=== PATIENT | female | born 1945 | race Caucasian/White ===

== ENCOUNTER 2021-01-15 05:14 | Inpatient (IN) ==
--- NOTE | 2020-12-29 15:06 | PAT Medication Instructions ---
Medication Instructions Date of Service December 29, 2020 Home Medications aspirin [Aspir-81] 81 mg PO QAM cholecalciferol (vitamin D3) [Vitamin D3] 25 mcg PO QAM fluticasone propionate [Flonase] 2 spray INTRANASAL HS ibuprofen [Motrin] 800 mg PO BID omeprazole 20 mg PO QAM ASK your surgeon for instructions ibuprofen [Motrin] 800 mg PO BID ASK your prescriber and surgeon aspirin [Aspir-81] 81 mg PO QAM DO NOT take the morning of surgery cholecalciferol (vitamin D3) [Vitamin D3] 25 mcg PO QAM Take morning of surgery With a small sip of water, OTHERWISE NOTHING TO EAT OR DRINK AFTER MIDNIGHT: omeprazole 20 mg PO QAM Take evening before surgery fluticasone propionate [Flonase] 2 spray INTRANASAL HS Other Notes If you have any questions please call us at [phone] or [phone] or [phone] or [phone]
--- NOTE | 2021-01-02 11:19 | Anesthesiology Consultation ---
Date of Service January 02, 2021 Assessment & Plan (1) Encounter for pre-operative examination: COVID screening: Per assessment on 01/02: Travel screen negative, no known COVID- 19 positive contacts or current COVID-19 related symptoms. Patient fully vaccinated. Surgeon arranging preop COVID testing (scheduled 01/08; MARRY Garcia). Awaiting results. Chart Review Chart Review: Acceptable Risk for Surgery and Patient seen in Pre Admission Testing Teaching & Discussion Pre-Anesthesia Teaching/Discussion Notes: Instructed NPO after midnight before surgery,except medications with 15 cc of water. Medication instructions provided according to the PAT guidelines. History Surgery Operation Date: 01/15/21 07:00 Proposed Procedures p Right Reverse Total Shoulder Arthroplasty - Adam Jaramillo M.D. Height/Weight Height: 5 ft 3 in Weight: 71.9 kg Allergies Allergy/AdvReac Type Severity Reaction Status Date / Time No Known Allergies Allergy Verified 12/22/20 09:50 Medications Home Medications Medication Instructions Recorded Confirmed Last Taken aspirin [Aspir-81] 81 mg PO QAM 12/22/20 12/22/20 Unknown cholecalciferol (vitamin D3) 25 mcg PO QAM 12/22/20 12/22/20 Unknown [Vitamin D3] fluticasone propionate [Flonase] 2 spray INTRANASAL HS 12/22/20 12/22/20 Unknown ibuprofen [Motrin] 800 mg PO BID 12/22/20 12/22/20 Unknown omeprazole 20 mg PO QAM 12/22/20 12/22/20 Unknown Past Medical History Medical History GERD (gastroesophageal reflux disease) Osteoarthritis Exercise / Class Metabolic Activity II 4-5 Yardwork/Stairs/Walk up hill Past Family History Family History Brother Diabetes Past Surgical History Surgical History H/O bilateral cataract extraction History of cardiac cath 5+ years ago > no stents (per [facility] records) History of colonoscopy History of esophagogastroduodenoscopy (EGD) History of hysterectomy History of tooth extraction 1 implant Past Anesthesia History No Hx of Anesthesia Complications and No Family Hx of Anesthesia Complications History of PONV No Hx of PONV and No Hx of Motion Sickness Social History Smoking Status: Never smoker Do You Dip or Chew Tobacco: No Hx Alcohol Use: Yes Alcohol type: wine alcohol intake frequency: holidays/special occasions only Hx Substance Use: No substance use type: does not use Review of Systems Patient denies chest pain, shortness of breath, dyspnea on exertion, fever, chills, cough, wheezing, palpitations. Physical Exam Vital Signs VITALS BP 150/83 P 76 TEMP 98.1 SP02 97%RA RESP 16 PHYSICAL Full neck and c-spine range of motion. Full TMJ range of motion. TMD 3 finger breaths Mallampati Score 1 Dentition: intact, upper left canine tooth implant Lungs: clear throughout to auscultation Cardiac: regular rate and rhythm, no murmurs noted Spine: normal Carotid arteries: negative bruit Extremities: no edema Testing Laboratory Results 01/02/21 12:25 01/02/21 12:25 PT 9.7 Seconds (9.0-12.0) 01/02/21 12:25 INR 1.0 (0.9-1.1) 01/02/21 12:25 APTT 30.8 Seconds (21.0-31.0) 01/02/21 12:25 Hemoglobin A1c 6.2 % (4.5-5.6) H 01/02/21 12:25 Urine Color Yellow 01/02/21 12:25 Urine Appearance Clear (Clear) 01/02/21 12:25 Urine pH 7.0 (4.5-7.5) 01/02/21 12:25 Ur Specific [place] 1.006 (1.000-1.030) 01/02/21 12:25 Urine Protein Negative (Negative) 01/02/21 12:25 Urine Glucose (UA) Negative (Negative) 01/02/21 12:25 Urine Ketones Negative (Negative) 01/02/21 12:25 Urine Nitrite Negative (Negative) 01/02/21 12:25 Ur Leukocyte Esterase Negative (Negative) 01/02/21 12:25 Blood Type O Positive 01/02/21 12:25 Antibody Screen NEGATIVE 01/02/21 12:25 Electrocardiogram Date: 01/02/21 Findings: + NSR @ (74) Chest X-Ray Date: 01/02/21 Findings: + NAD Stress Test Date: 05/11/19 Type: DSE Dobutamine stress echo is normal with out inducible ischemia. Dobutamine stress EKG is equivocal. 85% MPHR. No significant arrhythmias. LVEF 60 to 64%. Mild RVD. Mild MR. PASP estimated at 23 mmHg.
--- NOTE | 2021-01-02 13:01 | XRay Report ---
XR chest Pre-admission PA/Lat HISTORY: Preop. COMPARISON: None. FINDINGS: The lungs are clear. Cardiac silhouette is normal in size. No pleural effusions. No pneumot horax. IMPRESSION: No acute process. ACT 112: Negative or not required by law. Electronically signed by: Lennox Alcazar M.D. 01/02/2021 1:00 PM
[2021-01-02 14:37] LABS: Basophils # (auto) 0.03 K/uL (0-0.2); Basophils % (auto) 0.3 %; Eosinophils # (auto) 0.31 K/uL (0-0.5); Eosinophils % (auto) 2.9 %; Hematocrit (blood only) 36.8 % (37-47); Hemoglobin 12.1 g/dL (12.0-16.0); Immature Granulocytes # (auto) 0.03 K/uL (0.00-0.02); Immature Granulocytes % (auto) 0.3 %; Lymphocytes # (auto) 2.34 K/uL (1.2-3.4); Mean Corpuscular Hemoglobin 28.2 pg (25-34); Mean Corpuscular Hgb Conc 32.9 g/dL (32-36); Mean Corpuscular Volume 85.8 fL (80-100); Mean Platelet Volume 10.2 fL (7.4-10.4); Monocytes # (auto) 1.03 K/uL (0.11-0.59); Monocytes % (auto) 9.7 %; Neutrophils # (auto) 6.91 K/uL (1.4-6.5); Neutrophils % (auto) 64.8 %; Platelet Count 494 K/uL (130-400); RDW Coefficient of Variation 13.3 % (11.5-14.5); RDW Standard Deviation 41.6 fL (36.4-46.3); Red Blood Count 4.29 M/uL (4.2-5.4); White Blood Count 10.65 K/uL (4.8-10.8)
[2021-01-02 14:43] LABS: Appearance Urine Clear (Clear); Bilirubin Urine Negative (Negative); Blood Urine Negative (Negative); Color Urine Yellow; Glucose Urine UA Negative (Negative); Ketones Urine Negative (Negative); Leukocyte Esterase Urine Negative (Negative); Nitrite Urine Negative (Negative); Protein Urine Negative (Negative); Specific Gravity Urine 1.006 (1.000-1.030); Urobilinogen Urine Negative (Negative)
[2021-01-02 14:47] LABS: Albumin Level 3.5 gm/dl (3.4-5.0); BUN Creatinine Ratio 14.1 (10-20); Calcium 9.6 mg/dl (8.5-10.1); Creatinine Clr Calc Pharmacy 57.6 ml/min; Est GFR (African American) 84.3; Est GFR (Non-African American) 72.7; Potassium 4.7 mmol/L (3.5-5.1)
[2021-01-02 14:54] LABS: Estimated Average Glucose 131 mg/dl; Hemoglobin A1C 6.2 % (4.5-5.6)
[2021-01-02 14:55] LABS: Partial Thromboplastin Ratio 1.2; Partial Thromboplastin Time 30.8 Seconds (21.0-31.0); Prothrombin Time 9.7 Seconds (9.0-12.0)
--- NOTE | 2021-01-02 21:13 | Electrocardiogram Report ---
Test Reason : Blood Pressure : / mmHG Vent. Rate : 074 BPM Atrial Rate : 074 BPM P-R Int : 140 ms QRS Dur : 090 ms QT Int : 380 ms P-R-T Axes : 045 069 057 degrees QTc Int : 421 ms Normal sinus rhythm Normal ECG No previous ECGs available Confirmed by Lior Garrett ([id number]) on 01/02/2021 9:13:25 PM Referred By: Adam Jaramillo Confirmed By:Lior Garrett
--- NOTE | 2021-01-14 10:32 | History & Physical Report ---
Date of Service January 14, 2021 Assessment & Plan (1) Right rotator cuff tear arthropathy: She has an obvious chronic, massive, retracted, full-thickness rotator cuff tear. With the fatty atrophy, this is obviously an irrepairable tear. Therefore only viable surgical treatment option at this point would be a reverse total shoulder arthroplasty. We discussed initial conservative treatment with a steroid injection versus definitive surgical intervention with the shoulder replacement. The injection may help with her pain temporarily, but will not likely significantly improve her shoulder function. The lack of abduction is severely problematic to her and very debilitating. She would much prefer to improve her function so she can get back to her active lifestyle. She therefore would prefer to proceed with shoulder replacement surgery, and I think this is very reasonable. Risks, benefits, and alternatives of surgery were explained in detail. The surgical procedure, as well as postoperative recovery and rehabilitation, was also explained in detail. Risks include bleeding; infection; damage to surrounding structures such as nerves, blood vessels, and tendons that run in the area; persistent pain or stiffness; hardware failure; dislocation; brachial plexus palsy; blood clots; or need for further surgery. The patient understands all of this and wishes to proceed with surgery. Preoperative workup was completed today, and informed consent was obtained. Present on Admission?: Yes History of Present Illness Chief Complaint: Right shoulder pain and weakness Primary Care Provider: NO PCP Ms. New returns today for her right shoulder. Again, she is a 75-year old [id number] female with chronic right shoulder pain and weakness. She does have a history of a rotator cuff repair on this shoulder back in [address] Neil, although unfortunately we do not have any record of this in our EMR. She did well after that surgery, and had a good recovery. She then started having recurrent pain and weakness in the right shoulder about a year ago without any obvious recurrent injury. She went through physical therapy for about 6 weeks without any significant improvement. She has significant persistent pain in that shoulder that is making activities of daily living diff icult. It is waking her up at night. She primarily has reproduction of this pain with reaching behind, forward, or overhead. Allergies Allergy/AdvReac Type Severity Reaction Status Date / Time No Known Allergies Allergy Verified 12/22/20 09:50 Home Medications Medication Instructions Recorded Confirmed Type aspirin [Aspir-81] 81 mg PO QAM 12/22/20 12/22/20 History cholecalciferol (vitamin D3) 25 mcg PO QAM 12/22/20 12/22/20 History [Vitamin D3] fluticasone propionate [Flonase] 2 spray INTRANASAL HS 12/22/20 12/22/20 History ibuprofen [Motrin] 800 mg PO BID 12/22/20 12/22/20 History omeprazole 20 mg PO QAM 12/22/20 12/22/20 History Past Med/Surg History Medical History GERD (gastroesophageal reflux disease) Osteoarthritis Surgical History H/O bilateral cataract extraction History of cardiac cath 5+ years ago > no stents (per [facility] records) History of colonoscopy History of esophagogastroduodenoscopy (EGD) History of hysterectomy History of tooth extraction 1 implant Family History Brother Diabetes Social History Smoking Status: Never smoker Second Hand Exposure: No; Do You Dip or Chew Tobacco: No; Tobacco Cessation Education Requested by Patient: No Hx Alcohol Use: Yes Alcohol type: wine Hx Substance Use: No Preferred Language: Faroese Communication Ability: Effective Interceptor Operator Required: No Beliefs That Will Affect Care: None Current Living Situation: Spouse Other Information That Helps Us Care for You: No Feels Safe at Home: Yes Safety Concerns: Feels Safe At This Time Assistive Devices: Glasses Physical Exam Physical Exam: Examination of the right shoulder reveals rather severe limitation and weakness of the supraspinatous and infraspinatous. She can only actively abduct up to about 85 degrees. Subscapularis strength is well maintained. Positive Beacon's test. Positive impingement testing. She has what appears to be a mini open rotator cuff repair incision along the lateral deltoid. No biceps tenodesis incision. Results & Data ([facility]) Diagnostic Findings MRI of the right shoulder obtained was reviewed. It shows a massive retracted full-thickness rotator cuff tear involving the entire supraspinatus and the superior half of the subscapularis. The tendon was retracted to the level of the glenoid rim. She has severe fatty atrophy of the rotator cuff muscle bellies, with about 70% atrophy of the supraspinatus, and about 60% atrophy of the subscapularis.
[2021-01-15] MEDS ORDERED: dexAMETHasone 4 MG TAB PO SCH (06:00)
[2021-01-15] MEDS ORDERED: TRANEXAMIC ACID 1,000 MG **IV Pre-op IV SCH (06:00)
[2021-01-15] MEDS ORDERED: Scopolamine 1 MG TDSY TD SCH (06:00)
[2021-01-15] MEDS ORDERED: GABAPENTIN 300 MG CAP PO SCH (06:00)
[2021-01-15] MEDS ORDERED: LR 15ML/HR IV SCH (06:00)
[2021-01-15] MEDS ORDERED: ACETAMINOPHEN 500 MG TAB PO SCH (06:00)
[2021-01-15] MEDS ORDERED: METOCLOPRAMIDE HCL 10 MG TABLET PO SCH (06:00)
[2021-01-15] MEDS ORDERED: CeleBREX 200 MG CAP PO SCH (06:00)
[2021-01-15] MEDS ORDERED: ceFAZolin 1000MG 1,000 MG/7.5 ML SYR IV SCH (06:00)
[2021-01-15] MEDS ORDERED: FAMOTIDINE 20 MG TAB PO SCH (06:00)
[2021-01-15] MEDS ORDERED: BUPIVACAINE 0.5 % 5 MG/1 ML PF 10ML VIAL ONE (06:25)
[2021-01-15] MEDS ORDERED: fentaNYL citrate 100 MCG/2 ML VIAL ONE (06:36)
[2021-01-15] MEDS ORDERED: MIDAZOLAM HCL 1 MG/ML 2ML VIAL ONE ×2 (06:36)
[2021-01-15] MEDS ORDERED: ATROPINE SULFATE 0.1 MG/ML 10ML SYR IV PRN (06:37)
[2021-01-15] MEDS ORDERED: ONDANSETRON INJ 2 MG/ML 2 ML VIAL IV PRN ×2 (06:37→10:32)
[2021-01-15] MEDS ORDERED: ePHEDrine sulfate 50 MG/ML AMP IV PRN (06:37)
[2021-01-15] MEDS ORDERED: fentaNYL citrate 100 MCG/2 ML VIAL IV PRN (06:37)
--- NOTE | 2021-01-15 07:00 | History & Physical Bridge Note ---
Date of Service January 15, 2021 History & Physical Bridge Note I have examined the patient, reviewed the History & Physical and in the interval since the performance of the History & Physical I have noted the following changes of clinical significance: no changes noted
[2021-01-15] MEDS ORDERED: ePHEDrine sulfate 50 MG/ML SYR ONE (07:43)
[2021-01-15] MEDS ORDERED: LIDOCAINE HCL 2% 2 ML VIAL/AMP(20MG/ML) INFIL ONE (07:43)
[2021-01-15] MEDS ORDERED: ONDANSETRON INJ 2 MG/ML 2 ML VIAL ONE (07:43)
[2021-01-15] MEDS ORDERED: PROPOFOL IV EMULSION 10 MG/ML 20 ML VIAL IV ONE (07:43)
--- NOTE | 2021-01-15 09:10 | Post Operative Brief Note ---
Immediate Post Op Note v1 Date of Surgery January 15, 2021 Pre & Post Diagnosis Operation Date: 01/15/21 07:00 Pre-Op Diagnosis: Right Shoulder Rotator Cuff Tear Arthropathy Post-Op Diagnosis: Right Shoulder Rotator Cuff Tear Arthropathy I identified the patient and participated in the time-out.: Yes Procedure Operation Date: 01/15/21 07:00 Actual Procedures p Right Reverse Total Shoulder Arthroplasty(Right) - Adam Jaramillo M.D. Surgeon Adam Jaramillo Curriculum Assistant Hussein Paula PA-C Estimated Blood Loss 75 Findings Consistent with Post-Op Diagnosis
--- NOTE | 2021-01-15 09:13 | Operative Report ---
Post Operative Report Pre & Post Diagnosis Operation Date: 01/15/21 07:00 Pre-Op Diagnosis: Right Shoulder Rotator Cuff Tear Arthropathy Post-Op Diagnosis: Right Shoulder Rotator Cuff Tear Arthropathy I identified the patient and participated in the time-out.: Yes Procedure Operation Date: 01/15/21 07:00 Actual Procedures Right Reverse Total Shoulder Arthroplasty (22031) Open biceps tenodesis (98907) - Adam Jaramillo M.D. Surgeon Adam Jaramillo Circuit Court Judge Hussein Paula PA-C Estimated Blood Loss 75 Findings Consistent with Post-Op Diagnosis Specimens None Drains None Anesthesia Type General Regional Complications none Disposition Disposition: Recovery Room Indications Ms. New is a 75-year-old female with recurrent pain and weakness in her right shoulder after previous rotator cuff repair back in 2005. History, clinical exam, and imaging were consistent with the above diagnosis. Risks, benefits, and alternatives of surgery were explained in detail. The patient understood all this and wished to proceed. Description of Procedure Components Implanted: Tornier Reverse Total Shoulder implants Perform glenoid baseplate: 25mm, 15 degree full wedge with 6.5mm central screw and 5.0mm peripheral screws Glenosphere: 36mm, standard offset Ascend Flex humeral stem: 3B Standard length (74mm) Humeral tray: 1.5mm offset, +0mm thickness Polyethylene insert: 36mm, +6mm thickness Patient was identified in the preoperative holding area. Operative extremity was marked. Regional blockade was given by the Anesthesia Staff. Patient was then brought back to the operating room, and general anesthesia was induced without complication. Appropriate weight-based dose of Ancef was infused intravenously for antibiotic prophylaxis. The patient was then placed in the beachchair position. Right arm was then prepped and draped in a standard sterile fashion using Chlorhexidine prep. A standard deltopectoral incision was made through the skin and subcutaneous tissue. The cephalic vein was identified and retracted medially. Small branches to the deltoid were coagulated as necessary. The clavipectoral fascia was then incised and the subdeltoid space was opened. The rotator cuff was found to be deficient, and I therefore decided to perform a reverse total shoulder arthroplasty as planned preoperatively. The biceps tendon was identified within the bicipital groove and tenodesed at the superior border of the pectoralis tendon with #2 FiberWire suture. The biceps tendon was then divided proximal to the tenodesis site and the rotator interval was opened. The proximal portion of the biceps tendon was excised. The remaining subscapularis tendon was elevated subperiosteally off of the lesser tuberosity. The glenohumeral joint was then dislocated, and large osteophytes were debrided with a ronguer. The humeral head cut was then made in the appropriate inclination and version using the cutting guide. The intramedullary canal of the humerus was then opened with a canal finder. The humeral canal was then sequentially broached to the appropriate size. A protective cap was then placed on top of the humeral trial. I then turned my attention to the glenoid. The proximal stump of the biceps tendon was excised, along with the labrum circumferentially around the glenoid. The Blueprint drill guide was then positioned on the glenoid, and the guidepin was then inserted. The 15 degree angled reamer was then inserted over the guidepin and an reamed to an appropriate depth. The central screw hole was drilled, and appropriate length 6.5mm central screw was selected. The baseplate was then implanted into place according to our preoperative Blueprint plan by tightening down the central screw. A peripheral 5mm nonlocking screw was placed superiorly first for additional compression of the baseplate, and then additional locking 5 mm peripheral screws were placed to complete fixation of the baseplate. Glenosphere was then impacted and secured. A trial humeral tray and insert were placed on the trial humeral stem, and a trial reduction was carried out. Once I achieved acceptable joint stability and range of motion with the trial implants, the final humeral implants were assembled on the back table and then impacted into position. I then took the shoulder through full range of motion to ensure good stability and acceptable motion. Wound was then copiously irrigated with sterile saline. Deep fascia was closed with 0 V-lock suture. Subcutaneous tissue was closed with 2-0 V-lock, and skin was closed with 3-0 V-lock. Skin was then sealed with Dermabond. Sterile dressings were then applied with a waterproof silver-impregnated dressing, and the arm was placed into a sling. The patient was awakened from anesthesia and taken to the Post Anesthesia Care Unit in stable condition. There were no immediate complications from the procedure. I was present and scrubbed for the entire procedure, with the exception of final skin closure and dressing application. Due to the complex nature of the procedure, the entire surgery was performed with the operational assistance of Hussein Paula PA-C. The floor covering printer assistant, under direct supervision, was involved in the performance of all aspects of the surgical procedure including patient positioning, tissue retraction, hemostasis, wound closure, and dressing application. I attest to the content of the Intraoperative Record and any orders documented therein. Any exceptions are noted below.
--- NOTE | 2021-01-15 09:55 | XRay Report ---
XR shoulder RT min 2V routine HISTORY: 75 years-old Female Post shoulder surgery right shoulder total joint arthroplasty COMPARISON: Chest radiographs 01/02/2021 TECHNIQUE: 2 views of the right shoulder FINDINGS: Reverse right shoulder total joint arthroplasty. Satisfactory alignment without fracture or unexpecte d opaque foreign body. Expected postsurgical soft tissue swelling and deep tissue air. The imaged juana g renteria appear clear. IMPRESSION: Reverse right shoulder total joint arthroplasty with expected postoperative changes. ACT 112: Negative or not required by law. The above report was generated using voice recognition software. It may contain grammatical, syntax o r spelling errors. Electronically signed by: Moreno Reed M.D. 01/15/2021 9:54 AM
[2021-01-15] MEDS ORDERED: METOCLOPRAMIDE HCL INJ 5 MG/ML 2 ML VIAL IV PRN (10:32)
[2021-01-15] MEDS ORDERED: MAGNESIUM HYDROXIDE SUSP 30 ML UDC PO PRN (10:32)
[2021-01-15] MEDS ORDERED: bisacodyL 10 MG SUPP PR PRN (10:32)
[2021-01-15] MEDS ORDERED: NALOXONE HCL 0.4 MG/1 ML VIAL/CARP IV PRN (10:32)
[2021-01-15] MEDS: SODIUM CHLORIDE 0.9% 1000ML 1,000 ML IV SCH ×2 (11:13→20:42)
--- NOTE | 2021-01-15 11:27 | Anesthesiology Progress Note ---
Date of Service January 15, 2021 Anesthesia Post Procedure Vital Signs Vital Signs: Temp Pulse Pulse Resp BP Pulse Ox 01/15/21 11:14 97.7 F 87 15 118/67 97 01/15/21 10:50 97.9 F 76 17 128/69 97 01/15/21 10:15 97.7 F 74 16 130/69 98 01/15/21 10:05 81 16 138/62 99 01/15/21 09:55 97.7 F 77 16 136/61 98 01/15/21 09:45 75 16 141/69 H 98 01/15/21 09:35 76 16 130/61 100 01/15/21 09:28 97.9 F 80 18 130/61 100 01/15/21 05:39 98.2 F 79 18 164/76 H 97 Pain Intensity Right Shoulder: Pain Intensity: 3 Transfer of Care Handoff Completed per policy Notes Mental Status: alert / awake / arousable and participated in evaluation Patient Amnestic to Procedure: Yes Nausea / Vomiting: adequately controlled Pain: adequately controlled Airway Patency, RR, SpO2: stable & adequate BP & HR: stable & adequate Hydration State: stable & adequate Anesthetic Complications: no major complications apparent and Pt Satisfied with anesthetic care
[2021-01-15] MEDS: ACETAMINOPHEN 500 MG TAB PO SCH ×3 (14:08→23:13)
--- NOTE | 2021-01-15 14:14 | Orthopedic Progress Note ---
Date of Service January 15, 2021 Assessment & Plan (1) Right rotator cuff tear arthropathy: Postoperative day #0 status post right reverse total shoulder arthroplasty doing very well. -Antibiotics some 24 hours -DVT prophylaxis: Aspirin 3 and 25 mg daily -She can start immediate active range of motion of the shoulder once her block wears off, but no resisted elbow flexion or resisted forearm supination. -Plan for discharge home tomorrow. Admission and Anticipated Discharge Date Admission Date: January 15, 2021 Subjective Patient resting comfortably. Denies any pain in her shoulder. She is just starting to be able to wiggle her fingers, but really no substantial feeling yet. She is eating lunch. No nausea or vomiting. Physical Exam Physical Exam: Dressings clean, dry, and intact. Results & Data ([facility]) Vital Signs (Past 12 Hours) Vital Signs Temp Pulse Pulse Resp BP Pulse Ox 01/15/21 13:26 36.8 C 86 16 147/73 H 97 01/15/21 12:28 36.2 C L 65 18 115/65 96 01/15/21 11:14 36.5 C 87 15 118/67 97 01/15/21 10:50 36.6 C 76 17 128/69 97 01/15/21 10:15 36.5 C 74 16 130/69 98 01/15/21 10:05 81 16 138/62 99 01/15/21 09:55 36.5 C 77 16 136/61 98 01/15/21 09:45 75 16 141/69 H 98 01/15/21 09:35 76 16 130/61 100 01/15/21 09:28 36.6 C 80 18 130/61 100 01/15/21 05:39 36.8 C 79 18 164/76 H 97 Diagnostic Findings Postoperative x-rays look good. No dislocation.
[2021-01-15] MEDS: ceFAZolin 1000MG 1,000 MG/7.5 ML SYR IV SCH ×2 (15:24→23:15)
[2021-01-15] MEDS: IBUPROFEN 600 MG TAB PO SCH ×2 (15:24→20:58)
[2021-01-15] MEDS ORDERED: Scopolamine CHECK PATCH PLACEMENT SCH (16:00)
[2021-01-15] MEDS: DOCUSATE SODIUM 100 MG CAP PO SCH (20:44)
[2021-01-15] MEDS ORDERED: FLUTICASONE PROPIONATE NA SPR 16 GM BTL SCH (21:00)
[2021-01-15] MEDS ORDERED: SENNA 8.6 MG TAB PO SCH (21:00)
[2021-01-15] MEDS: oxyCODONE HCL IR 5 MG TAB (IMMEDIATE RELEASE) PO PRN (23:14)
[2021-01-15] MEDS ORDERED: COUGH DROP (SUGAR FREE) LOZ 24 LOZ/1 BOX BUCCAL PRN (23:40)
[2021-01-16] MEDS: IBUPROFEN 600 MG TAB PO SCH ×2 (03:09→08:54)
[2021-01-16 05:51] LABS: Basophils # (auto) 0.01 K/uL (0-0.2); Basophils % (auto) 0.1 %; Eosinophils # (auto) 0.04 K/uL (0-0.5); Eosinophils % (auto) 0.3 %; Hematocrit (blood only) 30.4 % (37-47); Hemoglobin 10.2 g/dL (12.0-16.0); Immature Granulocytes # (auto) 0.03 K/uL (0.00-0.02); Immature Granulocytes % (auto) 0.2 %; Lymphocytes # (auto) 3.25 K/uL (1.2-3.4); Lymphocytes % (auto) 21.3 %; Mean Corpuscular Hemoglobin 28.9 pg (25-34); Mean Corpuscular Hgb Conc 33.6 g/dL (32-36); Mean Corpuscular Volume 86.1 fL (80-100); Mean Platelet Volume 9.5 fL (7.4-10.4); Monocytes # (auto) 1.52 K/uL (0.11-0.59); Neutrophils % (auto) 68.1 %; Platelet Count 428 K/uL (130-400); RDW Coefficient of Variation 13.8 % (11.5-14.5); RDW Standard Deviation 43.2 fL (36.4-46.3); Red Blood Count 3.53 M/uL (4.2-5.4); White Blood Count 15.25 K/uL (4.8-10.8)
[2021-01-16] MEDS: ACETAMINOPHEN 500 MG TAB PO SCH (06:00)
[2021-01-16] MEDS: oxyCODONE HCL IR 5 MG TAB (IMMEDIATE RELEASE) PO PRN (06:13)
[2021-01-16 06:24] LABS: BUN Creatinine Ratio 19.4 (10-20); Calcium 8.1 mg/dl (8.5-10.1); Creatinine Clr Calc Pharmacy 54.2 ml/min; Est GFR (African American) 79.4; Est GFR (Non-African American) 68.5; Potassium 3.9 mmol/L (3.5-5.1)
[2021-01-16] MEDS: DOCUSATE SODIUM 100 MG CAP PO SCH (08:54)
[2021-01-16] MEDS ORDERED: CHOLECALCIFEROL 1,000 UNITS 25 MCG TAB PO SCH ×2 (09:00)
[2021-01-16] MEDS ORDERED: ASPIRIN 325 MG ECTAB PO SCH (09:00)
[2021-01-16] MEDS ORDERED: PANTOprazole 40 MG TAB PO SCH (09:00)
[2021-01-16] MEDS ORDERED: MULTIVITAMIN TAB PO SCH (09:00)
--- NOTE | 2021-01-16 10:09 | Orthopedic Progress Note ---
Date of Service January 16, 2021 Assessment & Plan (1) Right rotator cuff tear arthropathy: Postoperative day #1 status post right reverse total shoulder arthroplasty. Remaining stable and feeling well. -Antibiotics some 24 hours, then discontinue. -DVT prophylaxis: Aspirin 3 and 25 mg daily -She can start immediate active range of motion of the shoulder once her block wears off, but no resisted elbow flexion or resisted forearm supination. -Plan for discharge home today. Admission and Anticipated Discharge Date Admission Date: January 15, 2021 Subjective Postop day 1 Patient just under went OT and is about to do her PT protocol. She is feeling well this morning. Pain is controlled. She can tell that her block is slowly starting to wear off. She denies shortness of breath, chest pain, lightheadedness. She is hoping to go home today. Physical Exam Physical Exam: Silverlon dressing is clean, dry, and intact. Sling is in place. She has good range of motion of her wrist, hand and fingers. There is some slight weakness noted secondary to her nerve block that is still starting to wear off. Cap refills less than 2 seconds. Some residual numbness in the fingers at this time. Results & Data ([facility]) Vital Signs (Past 12 Hours) Vital Signs Temp Pulse Resp BP Pulse Ox 01/16/21 07:30 36.9 C 72 16 116/68 94 01/16/21 03:23 36.5 C 95 H 14 118/70 95 01/15/21 22:41 36.6 C 78 18 122/71 95 Laboratory Results Laboratory Results WBC 15.25 K/uL (4.8-10.8) H 01/16/21 05:32 RBC 3.53 M/uL (4.2-5.4) L 01/16/21 05:32 Hgb 10.2 g/dL (12.0-16.0) L 01/16/21 05:32 Hct 30.4 % (37-47) L 01/16/21 05:32 MCV 86.1 fL (80-100) 01/16/21 05:32 MCH 28.9 pg (25-34) 01/16/21 05:32 MCHC 33.6 g/dL (32-36) 01/16/21 05:32 RDW Std Deviation 43.2 fL (36.4-46.3) 01/16/21 05:32 RDW Coeff of Brady 13.8 % (11.5-14.5) 01/16/21 05:32 Plt Count 428 K/uL (130-400) H 01/16/21 05:32 MPV 9.5 fL (7.4-10.4) 01/16/21 05:32 Immature Gran % (Auto) 0.2 % 01/16/21 05:32 Neut % (Auto) 68.1 % 01/16/21 05:32 Lymph % (Auto) 21.3 % 01/16/21 05:32 [place] % (Auto) 10.0 % 01/16/21 05:32 Eos % (Auto) 0.3 % 01/16/21 05:32 Baso % (Auto) 0.1 % 01/16/21 05:32 Neut # (Auto) 10.40 K/uL (1.4-6.5) H 01/16/21 05:32 Lymph # (Auto) 3.25 K/uL (1.2-3.4) 01/16/21 05:32 [place] # (Auto) 1.52 K/uL (0.11-0.59) H 01/16/21 05:32 Eos # (Auto) 0.04 K/uL (0-0.5) 01/16/21 05:32 Baso # (Auto) 0.01 K/uL (0-0.2) 01/16/21 05:32 Immature Gran # (Auto) 0.03 K/uL (0.00-0.02) H 01/16/21 05:32 PT 9.7 Seconds (9.0-12.0) 01/02/21 12:25 INR 1.0 (0.9-1.1) 01/02/21 12:25 APTT 30.8 Seconds (21.0-31.0) 01/02/21 12:25 PTT Ratio 1.2 01/02/21 12:25 Sodium 140 mmol/L (136-145) 01/16/21 05:32 Potassium 3.9 mmol/L (3.5-5.1) 01/16/21 05:32 Chloride 111 mmol/L (98-107) H 01/16/21 05:32 Carbon Dioxide 25 mmol/L (21-32) 01/16/21 05:32 Anion Gap 4.0 (3-11) 01/16/21 05:32 BUN 16 mg/dl (7-18) 01/16/21 05:32 Creatinine 0.83 mg/dl (0.6-1.2) 01/16/21 05:32 Est Cr Clr Drug Dosing 54.2 ml/min 01/16/21 05:32 Est GFR ( Amer) 79.4 01/16/21 05:32 Est GFR (Non-Af Amer) 68.5 01/16/21 05:32 BUN/Creatinine Ratio 19.4 (10-20) 01/16/21 05:32 Glucose 149 mg/dl (70-99) H 01/16/21 05:32 Estimat Average Glucose 131 mg/dl 01/02/21 12:25 Hemoglobin A1c 6.2 % (4.5-5.6) H 01/02/21 12:25 Calcium 8.1 mg/dl (8.5-10.1) L 01/16/21 05:32 Albumin 3.5 gm/dl (3.4-5.0) 01/02/21 12:25 Urine Color Yellow 01/02/21 12:25 Urine Appearance Clear (Clear) 01/02/21 12:25 Urine pH 7.0 (4.5-7.5) 01/02/21 12:25 Ur Specific [place] 1.006 (1.000-1.030) 01/02/21 12:25 Urine Protein Negative (Negative) 01/02/21 12:25 Urine Glucose (UA) Negative (Negative) 01/02/21 12:25 Urine Ketones Negative (Negative) 01/02/21 12:25 Urine Blood Negative (Negative) 01/02/21 12:25 Urine Nitrite Negative (Negative) 01/02/21 12:25 Urine Bilirubin Negative (Negative) 01/02/21 12:25 Urine Urobilinogen Negative (Negative) 01/02/21 12:25 Ur Leukocyte Esterase Negative (Negative) 01/02/21 12:25 Blood Type O Positive 01/02/21 12:25 Antibody Screen NEGATIVE 01/02/21 12:25
--- NOTE | 2021-01-16 17:54 | Discharge Summary ---
Date of Service January 16, 2021 Admission HPI Per Admitting Provider Ms. New returns today for her right shoulder. Again, she is a 75-year old [id number] female with chronic right shoulder pain and weakness. She does have a history of a rotator cuff repair on this shoulder back in [address], although unfortunately we do not have any record of this in our EMR. She did well after that surgery, and had a good recovery. She then started having recurrent pain and weakness in the right shoulder about a year ago without any obvious recurrent injury. She went through physical therapy for about 6 weeks without any significant improvement. She has significant pe rsistent pain in that shoulder that is making activities of daily living difficult. It is waking her up at night. She primarily has reproduction of this pain with reaching behind, forward, or overhead. Principal Diagnosis Right shoulder rotator cuff tear arthropathy Discharge Data Allergies Allergy/AdvReac Type Severity Reaction Status Date / Time No Known Allergies Allergy Verified 01/15/21 05:30 Procedures Performed Operation Date: 01/15/21 07:00 Actual Procedures p Right Reverse Total Shoulder Arthroplasty(Right) - Adam Jaramillo M.D. Ordered Studies 01/15/21 05:00 US - OR guided needle placemen Routine Hospital Course (1) Right rotator cuff tear arthropathy: Patient underwent a right reverse total shoulder arthroplasty on the date of admission. Patient tolerated the procedure well and was transferred up to the general orthopedic surgery floor in stable condition. Perioperative antibiotic coverage was initiated, and continued for 24 hours postoperatively. DVT prophylaxis was initiated consisting of SCDs and aspirin 325 mg daily. Perioperative pain control regimen was transitioned to strictly oral pain medications by postoperative day 1. On postoperative day 1 the patient was doing very well. Pain was well controlled, and patient was mobilizing well with therapy. Patient was determined be safe and ready for discharge to home. Total Time Total Time Spent Total Time Spent (In Minutes): 15 Discharge Plan Discharge Items Patient Disposition: Home - Self-Care Reason For Visit: Right Shoulder Rotator Cuff Tear Arthroplasty Discharge Diagnosis: Right shoulder rotator cuff tear arthropathy Activity: Per Instructions section Weightbearing: Right non-weightbearing Non-emergency contact: Surgeon Call non-emergency contact if: your pain is not controlled, your temperature is above 101.5, your wound has increased redness and your wound has increased drainage Follow-up/Referrals: Janene Aguilar MD [Primary Care Provider] - Adam Jaramillo M.D. [Physician] - Diet: Regular Ambulatory Orders: Basic Metabolic Panel (Routine) Timeframe: 1 Week Location: Determined by Patient Ordered By: Fede Marin Attending Provider Instructions: Things to Watch Out For -Go to the Emergency Room if you have sudden onset of nausea, vomiting, chest pain, shortness of breath, or uncontrollable pain. -Call the clinic or go to the Emergency Room if you have a sudden increase in the amount of wound drainage or the drainage becomes thick, yellow or green, or foul-smelling. -For routine questions, call the clinic at [phone] during regular business hours (8am-5pm). For urgent issues after regular business hours, you may call the clinic to be connected to the on-call physician. Dressings -A special waterproof, silver-impregnated dressing was placed on your shoulder. Keep this dressing in place for 1 week after surgery. You may shower with the waterproof dressing in place, but do not soak the dressing in the bathtub or pool. -One week after surgery, you may remove the waterproof dressing. You may continue to shower, and let water run BRIEFLY over the incision, but do not soak the incision in the bathtub or pool for 2 weeks. You may also gently clean the incision with mild soap and water; pat the incision dry after cleaning-do not rub the incision. Apply a new dressing daily thereafter. Shoulder Exercises -Keep your operative shoulder in the sling for comfort, except as detailed below. -You should come out of the sling 4-5 times a day for passive pendulum exercises: lean over and swing your arm in a circular pattern. -You should also do active-assisted forward flexion exercises: use your opposite hand to lift your operative arm forward to 90 degrees. -Do not flex your elbow (curl motion) or supinate your forearm (rotating palm up) against resistance. -Do not use your arm to push yourself up out of bed or up from a seated position. Ice Pack -You may use an ice pack for pain relief. You should use it 20-30 minutes at a time. Place a towel between the ice pack and your skin to prevent frostbite. -You should use the ice pack fairly regularly for the first 1-2 weeks after surgery to help reduce pain and inflammation. -About 2 weeks after your surgery, you should start using heat to loosen up your shoulder prior to doing your stretching exercises, then use the cooling sleeve after your exercises are complete to reduce swelling and pain. Pain Medicines -Your prescriptions for pain medications have already been sent to the pharmacy on file at [facility]. -You have been prescribed an anti-inflammatory (Motrin/ibuprofen) and a non- narcotic pain medicine (Tylenol/acetaminophen). These are your primary pain medications. Take them each every 6 hours as instructed. It is recommended that you stagger these medicines every 3 hours (i.e. take ibuprofen at 8:00 am, then acetaminophen at 11:00 am, then ibuprofen at 2:00 pm, etc) -DO NOT take any additional anti-inflammatories (Advil, Aleve/naproxen, Mobic/meloxicam, Celebrex) or any additional Tylenol/acetaminophen products with these prescribed medications. -You have also been prescribed an additional narcotic pain medication (oxycodone). Take this medicine ONLY for breakthrough pain not controlled by the ibuprofen and acetaminophen. -Do not drive or operate heavy machinery while taking the narcotic medication. -Common side effects of narcotic pain medicines include itching, nausea, c onstipation, and feeling "loopy". However, if you develop a rash or hives, stop taking the medicine and call the clinic. If you develop swelling in your throat or difficulty breathing, go to the Emergency Room or call 911 IMMEDIATELY. -You may take over the counter stool softeners if needed for constipation. Aspirin -Take a full strength (325mg) aspirin every day for 4 weeks (28 days) to prevent blood clots. -If you were taking a baby aspirin (81mg) prior to surgery, you may resume taking this 81mg dose after you complete the 28-day course of the 325mg strength dose; do not take the 325mg dose in addition to your 81mg dose. -Be aware that you will bruise easier while taking Aspirin; this is normal. However, if you develop a significantly large area of swelling after an injury, or have a cut that will not stop bleeding, call the clinic or go to the Emergency Room immediately. Pending Studies at Discharge: No Stand-Alone Forms: My [facility], Smoking Cessation Medications and DC Order Prescriptions: Continued fluticasone propionate 50 mcg/actuation [place],Suspension 2 spray INTRANASAL HS RF: 0 omeprazole 20 mg Tablet,Delayed Release (Dr/Ec) 20 mg PO QAM RF: 0 cholecalciferol (vitamin D3) [Vitamin D3] 25 mcg (1,000 unit) Tablet,Chewable 25 mcg PO QAM RF: 0 Discontinued ibuprofen [Motrin] 800 mg Tablet 800 mg PO BID RF: 0 aspirin [Aspir-81] 81 mg Tablet,Delayed Release (Dr/Ec) 81 mg PO QAM RF: 0 Discharge Orders: Discharge Order (Routine); Ordered 01/16/21 Ordered By: Fede Arango/Other Patient Handouts: Managing Post-Op Pain at Home Admission Data Admit Date/Time: 01/15/21 09:34 Attending Provider: Adam Jaramillo Admit Provider: Adam Jaramillo Primary Care Provider: Janene Aguilar Other Interventions: Discharge Summary Assessment (RN) Last Done: 01/16/21 10:32
== END 2021-01-16 11:50 | disposition home or self-care (01) | DRG 483 ==
LOC: ASU 05:14 → 3E 09:34